=== PATIENT | female | born 1995 | race African-American/Black ===

== ENCOUNTER 2018-05-31 12:21 | Emergency (ER) | payer OTHER ==
[~2018-05-31] VITALS: Ht 167.6 cm; Wt 63.5 kg
[2018-05-31] MEDS ORDERED: KEFLEX500 M1 PO (16:42)
[2018-05-31 16:47] VITALS: BP 118/67
== END 2018-05-31 16:53 | disposition home or self-care (01) ==
LOC: ER 12:21
DX: S81.811A Laceration without foreign body, right lower leg, initial encounter (principal); Z23 Encounter for immunization; W22.03XA Walked into furniture, initial encounter; Y93.89 Activity, other specified; Y92.89 Other specified places as the place of occurrence of the external cause; Y99.8 Other external cause status

== ENCOUNTER 2018-06-17 11:24 | Emergency (ER) | payer OTHER ==
[~2018-06-17] VITALS: Ht 167.6 cm; Wt 65.8 kg
[~2018-06-17 11:24] MED LIST: KEFLEX500 M1 PO
== END 2018-06-17 12:10 | disposition home or self-care (01) ==
LOC: ER 11:24
DX: S81.811D Laceration without foreign body, right lower leg, subsequent encounter (principal); X58.XXXD Exposure to other specified factors, subsequent encounter